=== PATIENT | male | born 1955 | race African-American/Black ===

== ENCOUNTER 2019-08-16 13:39 | Emergency (ER) | payer OTHER ==
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
== END 2019-08-16 15:15 | disposition home or self-care (01) ==
LOC: ERS 13:39
DX: S20.222A Contusion of left back wall of thorax, initial encounter (principal); E11.9 Type 2 diabetes mellitus without complications; I10 Essential (primary) hypertension; E78.5 Hyperlipidemia, unspecified; V43.52XA Car driver injured in collision with other type car in traffic accident, initial encounter